=== PATIENT | female | born 1990 | race African-American/Black ===

== ENCOUNTER 2020-01-22 05:55 | Inpatient (IN) | payer OTHER ==
[2020-01-22] MEDS ORDERED: ELECTROLYTE-148 SOLN 500 ML IV ONE ×2 (06:00→09:50)
[2020-01-22 06:40] VITALS: BMI 21.2
[2020-01-22] MEDS ORDERED: CITRIC ACID/SODIUM CITRATE 30 ML UNIT-DOSE CUP PO ONE ×2 (07:15→09:50)
[2020-01-22] MEDS: ELECTROLYTE-148 SOLN 1,000 ML IV SCH (07:17)
[2020-01-22] MEDS ORDERED: OXYTOCIN 20 UNITS in 0.9% NS 40 UNIT/2,000 ML INFUS.BAG IV ONE (08:01)
[2020-01-22] MEDS ORDERED: morphine SULFATE/PF 0.5 MG/ML (2cc Syringe - QUVA) ONE (08:14)
[2020-01-22] MEDS ORDERED: ePHEDrine SULFATE 50 MG/1 ML AMPULE ONE (08:14)
[2020-01-22] MEDS ORDERED: ceFAZolin SODIUM 1 GM VIAL ONE (08:27)
[2020-01-22] MEDS ORDERED: MIDAZOLAM HCL 2 MG/2 ML SINGLE DOSE VIAL ONE (08:51)
[2020-01-22 09:41] LABS: COCAINE, UR NEGATIVE ng/ml (CUTOFF=300); METHADONE, UR NEGATIVE ng/ml (CUTOFF=300); OPIATES, URI NEGATIVE ng/ml (CUTOFF=300); PHENCYCLIDINE,URINE NEGATIVE ng/ml (CUTOFF=25); URINE AMPHETAMINES NEGATIVE ng/ml (CUTOFF=500); URINE BARBITURATES NEGATIVE ng/ml (CUTOFF=200); URINE BENZODIAZEPINES NEGATIVE ng/ml (CUTOFF=200)
[2020-01-22] MEDS ORDERED: ONDANSETRON 4 MG/2 ML VIAL IVPUSH PRN (09:47)
[2020-01-22] MEDS ORDERED: oxyCODONE HCL 5 MG TABLET PO PRN ×2 (09:51)
[2020-01-22] MEDS ORDERED: METHYLERGONOVINE MALEATE 0.2 MG/1 ML AMP IM PRN (09:51)
[2020-01-22] MEDS ORDERED: SENNOSIDES/DOCUSATE COMBO (SENNA PLUS) TABLET (UD) PO PRN (09:51)
--- NOTE | 2020-01-22 09:58 | HP ---
Past Medical History - Admission Chief Complaint: for primary lt c s, hx of myomectomy History Source: Patient Limitations to Obtaining History: No Limitations - Past Medical History MANAGER BENEFIT: No: Alzheimer's, CVA, Dementia, Migraine, Multiple Sclerosis, Peripheral Neuropathy, Parkinson's, Seizure, Syncope, TIA, Vertigo, Other Cardiovascular: No: AFIB, Aneurysm, Aortic Insufficiency, Aortic Stenosis, CAD, CHF, Deep Vein Thrombosis, HTN, Hyperlipdemia, MS, Mitral Insufficiency, Mitral Stenosis, Murmur, Pulmonary Hypertension, Other Pulmonary: No: Asthma, Bronchitis, Cancer, COPD, O2 Dependent, Pneumonia, Previously Intubated, Pulmonary Embolus, Pulmonary Fibrosis, Sleep Apnea, Other Gastrointestinal: No: Ascites, Cancer, Constipation, Crohn's Disease, D iverticulitis, Diverticulosis, Esophageal Varices, Gastritis, GERD, GI Bleed, Hemorrhoids, Hiatal Hernia, Inflamatory Bowel Disease, Irritable Bowel Disease, Pancreatitis, Peptic Ulcer Disease, Ulcerative Colitis, Other Hepatobiliary: No: Cirrhosis, Cholelithiasis, Cholecystitis, Choledocholithiasis, Hepatitis A, Hepatitis B, Hepatitis C, Other Renal/: No: Renal Failure, Renal Inusuff, BPH, Cancer, Hematuria, Hemodialysis, Neurogenic Bladder, Renal Calculi, UTI, Other Reproductive: No: Ectopic , Endometriosis, Fibroids, PID, Polycystic Ovary Syndrome, Postmenopausal, Other ...: 3 ...Para: 0 ...Term: 0 ...: 0 ...Spon : 1 ...Induced : 1 ...Living Children: 0 ...Multiple Gestation: 0 ... Weeks Gestation by Dates: 37.2 ...EDC by Dates: 02/10/20 Heme/Onc: No: Anemia, B12 Deficiency, Bleeding Disorder, Cancer, Current Chemotherapy, Current Radiation Therapy, Hemochromatosis, Hypercoaguable State, Myeloproliferative Synd, Sickle Cell Disease, Sickle Cell Trait, Thrombocytopenia, Other Infectious Disease: No: AIDS, C-Diff, Herpes Zoster, HIV, MRSA, STD's, Tuberculosis, VREF, Other Psych: No: Addictions, Anxiety, Bipolar, Depression, Panic, Psychosis, Schizophrenia, Other Musculoskeletal: No: Bursitis, Chronic low back pain, Hemiparesis, Hemiplegia, Osteoarthritis, Paraplegia, Other Rheumatology: No: Fibromyalgia, Gout, Lupus, Rheumatoid Arthritis, Sarcoidosis, Vasculitis, Other ENT: No: Allergic Rhinitis, Sinusitis, Other Endocrine: No: Ventura's Disease, Safford's Disease, Diabetes Insipidus, Diabetes Mellitus, Hyperparathyroidism, Hyperthyroidism, Hypothyroidism, Osteopenia, SIADH, Other Dermatology: No: Basal Cell, Cellulitis, Eczema, Melanoma, Psoriasis, Squamous Cell, Other - Past Surgical History Hx Myomectomy: Yes Hx Transabdominal Cerclage: No - Advance Directives Advance Directives: Yes: Living Will - Smoking History Smoking history: Never smoked Have you smoked in the past 12 months: No - Alcohol/Substance Use Hx Alcohol Use: No History of Substance Use: reports: None - Social History Usual Living Arrangement: Yes: With Significant Other Do you think of yourself as: Straight/Heterosexual ADL: Independent History of Recent Travel: No Home Medications - Allergies Allergies/Adverse Reactions: Allergies Allergy/AdvReac Type Severity Reaction Status Date / Time No Known Allergies Allergy Verified 01/22/20 06:52 Family Medical History Family History: Denies Review of Systems - Review of Systems Constitutional: reports: No Symptoms Eyes: reports: No Symptoms HENT: reports: No Symptoms Neck: reports: No Symptoms Cardiovascular: reports: No Symptoms Respiratory: reports: No Symptoms Gastrointestinal: reports: No Symptoms Genitourinary: reports: No Symptoms Breasts: reports: No Symptoms Reported Musculoskeletal: reports: No Symptoms Integumentary: reports: No Symptoms Neurological: reports: No Symptoms Endocrine: reports: No Symptoms Hematology/Lymphatic: reports: No Symptoms Psychiatric: reports: No Symptoms Physical Exam - Maternity Constitutional: Yes: Well Nourished, No Distress, Calm Eyes: Yes: WNL, Conjunctiva Clear, EOM Intact HENT: Yes: WNL, Atraumatic, Normocephalic Neck: Yes: WNL, Supple, Trachea Midline Cardiovascular: Yes: WNL, Regular Rate and Rhythm Lungs: Clear to auscultation Breast(s): Yes: WNL - Abdominal Exam/OB Fundal Height: 38 Number of Fetuses: Single Presentation: Vertex Contractions: Yes Regularity: Irregular Intensity: Unaware Monitor Mode: External Heart Rate (range): 150 Heart Rate Location: [facility] Category: I Accelerations: Uniform Decelerations: None - Vaginal Exam/OB Vaginal Bleeding: No Speculum Exam: No Dilatation (cm): 0 Amniotic Membrane Status: Intact Presentation: Vertex/Position Station: -2 - Physical Exam Musculoskeletal: Yes: WNL Extremities: Yes: WNL Edema: Yes Edema: LUE: 1+, RUE: 1+, LLE: 1+, RLE: 1+ Integumentary: Yes: WNL Deep Tendon Reflex Grade: Normal +2 ...Motor Strength: WNL Psychiatric: Yes: WNL, Alert, Oriented Hemorrhage Risk Assessment - Risk Factors Medium Risk Factors: Yes: Prior , uterine surgery,or multiple laparotomies High Risk Factors: Yes: None Risk Score: 1 Risk Level: Medium Risk Assessment/Plan for primary lt c s due to hx of myomectomy
[2020-01-22] MEDS ORDERED: OXYTOCIN 20 UNITS in 0.9% NS 20 UNIT/1,000 ML INFUS.BAG IV SCH (10:00)
[2020-01-22] MEDS ORDERED: ELECTROLYTE-148 SOLN 1,000 ML IV SCH (10:00)
--- NOTE | 2020-01-22 10:02 | OP ---
Operative Note - Note: Operative Date: 01/22/20 Pre-Operative Diagnosis: hx of myomectomy, for primary lt c s Operation: primary lt c s Findings: fibroids, no adhesions Post-Operative Diagnosis: Same as Pre-op Surgeon: Benedict Gaona Slab Stripper: Mohsen Archer Anesthesiologist/SALES TRAINER: Allie Jean Baptiste Anesthesia: Spinal Estimated Blood Loss (mls): 900 Operative Report Dictated: Yes
[2020-01-22] MEDS: IBUPROFEN 800 MG/8 ML IJ IVPB PRN (16:14)
[2020-01-22] MEDS: PRENATAL VITAMINS W/ FOLIC ACID TABLET (FP) PO SCH (18:14)
[2020-01-23] MEDS: IBUPROFEN 800 MG/8 ML IJ IVPB PRN (00:19)
[2020-01-23] MEDS: ELECTROLYTE-148 SOLN 1,000 ML IV SCH (07:48)
[2020-01-23 08:15] LABS: BASO % 0.4 % (0-2.0); EOS % 0.6 % (0-4.5); HEMATOCRIT 24.5 % (32.4-45.2); HEMOGLOBIN 8.3 GM/dL (10.7-15.3); LYMPH % 7.2 % (8-40); MCH 34.7 pg (25.7-33.7); MCHC 33.8 g/dl (32.0-36.0); MEAN CELL VOLUME 102.6 fl (80-96); MEAN PLT VOLUME 10.2 fl (7.5-11.1); NEUT % 85.8 % (42.8-82.8); PLATELET COUNT 169 K/MM3 (134-434); RBC 2.39 M/mm3 (3.60-5.2); RDW 12.8 % (11.6-15.6)
[2020-01-23] MEDS: PRENATAL VITAMINS W/ FOLIC ACID TABLET (FP) PO SCH (09:26)
[2020-01-23] MEDS ORDERED: BISACODYL 10 MG SUPP.RECT RC PRN (09:51)
--- NOTE | 2020-01-23 10:27 | PN ---
Post Progress Note Post Day: 1 Type of Delivery: Primary C/S Vital Signs: Vital Signs Temperature 98.2 F 01/23/20 06:00 Pulse Rate 55 L 01/23/20 06:00 Respiratory Rate 18 01/23/20 06:00 Blood Pressure 100/55 L 01/23/20 06:00 O2 Sat by Pulse Oximetry (%) 98 01/22/20 15:00 Breast Exam: Yes: Soft Uterus: Yes: Fundus Firm, Fundus below umbilicus Incision: Yes: Dressing dry and intact, Sutures intact Abdomen/GI: Yes: Abdomen soft, Passing flatus, Tolerating PO Lochia: Yes: Serosa Lochia, amount: Small Extremities: Yes: Calves non-tender Activity: Ambulating (oob asmuch as possible ) - Labs Labs: CBC WBC 14.0 K/mm3 (4.0-10.0) H 01/23/20 07:38 RBC 2.39 M/mm3 (3.60-5.2) L 01/23/20 07:38 Hgb 8.3 GM/dL (10.7-15.3) L 01/23/20 07:38 Hct 24.5 % (32.4-45.2) L D 01/23/20 07:38 MCV 102.6 fl (80-96) H 01/23/20 07:38 MCH 34.7 pg (25.7-33.7) H 01/23/20 07:38 MCHC 33.8 g/dl (32.0-36.0) 01/23/20 07:38 RDW 12.8 % (11.6-15.6) 01/23/20 07:38 Plt Count 169 K/MM3 (134-434) 01/23/20 07:38 MPV 10.2 fl (7.5-11.1) 01/23/20 07:38 Absolute Neuts (auto) 12.1 K/mm3 (1.5-8.0) H 01/23/20 07:38 Neutrophils % 85.8 % (42.8-82.8) H D 01/23/20 07:38 Lymphocytes % 7.2 % (8-40) L D 01/23/20 07:38 Monocytes % 6.0 % (3.8-10.2) 01/23/20 07:38 Eosinophils % 0.6 % (0-4.5) 01/23/20 07:38 Basophils % 0.4 % (0-2.0) 01/23/20 07:38 Nucleated RBC % 0 % (0-0) 01/23/20 07:38
--- NOTE | 2020-01-23 13:31 | PN ---
Progress Note (short form) - Note Progress Note: Anesthesia postop note 29 y/o F s/p spinal anesthesia/duramorph for section POD#1, vss, aaox3, pain well controlled, sensory motor intact distally No anesthesia complications.
[2020-01-23] MEDS: SIMETHICONE 80 MG TAB.CHEW (FP) PO PRN (13:42)
[2020-01-23] MEDS: ACETAMINOPHEN 325 MG TABLET (FP) PO PRN ×2 (13:42→21:56)
[2020-01-23] MEDS: IBUPROFEN 600 MG TABLET (FP) PO PRN ×2 (13:44→21:56)
[2020-01-23] MEDS: FERROUS SO4 325 MG TABLET (FP) PO SCH (21:56)
[2020-01-24] MEDS: SIMETHICONE 80 MG TAB.CHEW (FP) PO PRN ×3 (00:51→21:16)
--- NOTE | 2020-01-24 07:39 | PN ---
Post Progress Note Post Day: 2 Type of Delivery: Primary C/S Vital Signs: Vital Signs Temperature 97.7 F 01/24/20 05:54 Pulse Rate 62 01/24/20 05:54 Respiratory Rate 18 01/24/20 05:54 Blood Pressure 116/61 01/24/20 05:54 O2 Sat by Pulse Oximetry (%) 98 01/22/20 15:00 Breast Exam: Yes: Soft Uterus: Yes: Fundus Firm, Fundus below umbilicus Incision: Yes: Dressing dry and intact, Sutures intact Abdomen/GI: Yes: Abdomen soft, Passing flatus, Tolerating PO Lochia: Yes: Serosa Lochia, amount: Small Extremities: Yes: Calves non-tender Perineum: Yes: Intact Activity: Ambulating - Labs Labs: CBC WBC 14.0 K/mm3 (4.0-10.0) H 01/23/20 07:38 RBC 2.39 M/mm3 (3.60-5.2) L 01/23/20 07:38 Hgb 8.3 GM/dL (10.7-15.3) L 01/23/20 07:38 Hct 24.5 % (32.4-45.2) L D 01/23/20 07:38 MCV 102.6 fl (80-96) H 01/23/20 07:38 MCH 34.7 pg (25.7-33.7) H 01/23/20 07:38 MCHC 33.8 g/dl (32.0-36.0) 01/23/20 07:38 RDW 12.8 % (11.6-15.6) 01/23/20 07:38 Plt Count 169 K/MM3 (134-434) 01/23/20 07:38 MPV 10.2 fl (7.5-11.1) 01/23/20 07:38 Absolute Neuts (auto) 12.1 K/mm3 (1.5-8.0) H 01/23/20 07:38 Neutrophils % 85.8 % (42.8-82.8) H D 01/23/20 07:38 Lymphocytes % 7.2 % (8-40) L D 01/23/20 07:38 Monocytes % 6.0 % (3.8-10.2) 01/23/20 07:38 Eosinophils % 0.6 % (0-4.5) 01/23/20 07:38 Basophils % 0.4 % (0-2.0) 01/23/20 07:38 Nucleated RBC % 0 % (0-0) 01/23/20 07:38
--- NOTE | 2020-01-24 08:06 | DS ---
Physical Exam-HEEL REDUCER Vital Signs: Vital Signs Temperature 97.7 F 01/24/20 05:54 Pulse Rate 62 01/24/20 05:54 Respiratory Rate 18 01/24/20 05:54 Blood Pressure 116/61 01/24/20 05:54 O2 Sat by Pulse Oximetry (%) 98 01/22/20 15:00 Constitutional: Yes: Well Nourished, No Distress, Calm Eyes: Yes: WNL, Conjunctiva Clear, EOM Intact HENT: Yes: WNL, Atraumatic, Normocephalic Neck: Yes: WNL, Supple, Trachea Midline Cardiovascular: Yes: WNL, Regular Rate and Rhythm Respiratory: Yes: WNL, Regular, CTA Bilaterally Gastrointestinal: Yes: WNL, Normal Bowel Sounds, Soft ...Rectal Exam: Yes: WNL Renal/: Yes: WNL Pelvis: Yes: WNL External Genitalia: Yes: Normal Internal Exam Deferred: Yes Vaginal Exam: Yes: Normal Cervix: Yes: Normal Uterus: Yes: Normal Adnexa: Normal: Bilateral ....Post : Yes: Uterus firm, Uterus non-tender Breast(s): Yes: WNL Musculoskeletal: Yes: WNL Extremities: Yes: WNL Edema: Yes Integumentary: Yes: WNL Wound/Incision: Yes: Clean/Dry, Well Approximated Neurological: Yes: WNL, Alert, Oriented ...Motor Strength: WNL Psychiatric: Yes: WNL, Alert, Oriented Labs: CBC, BMP 01/23/20 07:38 Delivery - Delivery Section: Primary Type of Anesthesia: Spinal Episiotomy/Laceration: None EBL (cc): 900 Delivery, Single - Stages of Labor Date of Delivery: 01/22/20 Time of Delivery: 08:44 Time Placenta Delivered: 08:46 - Condition of Upholsterer Limousine And Hearse/Terrazzo Layer Helper Present: Yes Name: Luis Morales Infant Gender: Male Weight: 2.665 kg Position: Right, OT Total Hours ROM (Hrs/Mins): 1 min - 1 Minute Total Score: 9 5 Minutes Total Score: 9 - [place] Feeding Plan Initial Plan: Exclusive throughout hospitalization Discharge Summary Problems reviewed: Yes Reason For Visit: C/S ADMIT Procedures: Principal: primary lt c s Condition: Good - Instructions Diet, Activity, Other Instructions: Physical activity Resume your normal everyday activity as tolerated no heavy lifting or exercise until seen by your surgeon. You may walk unlimited ladarius of and climb stairs. You may resume driving the car when you feel safe and comfortable behind the wheel. No sexual activity as instructed. Wound care If you have a bandage, leave it on, and keep dry for 48-72 hours. After that time discard the outer bandage. If they are tapes on the skin under the out of bandage leave them in place. They will peel off in the next 7 to 10 days. Do Not Peel them off. You may shower the day after surgery. If there are tapes present on the skin, you may shower over them. Diet There are no dietary restrictions. Eat healthy, high-fiber foods. Drink 6 to 8 glasses of liquid each day. This will assist in keeping your bowels are regular. Pain management You may take Tylenol or acetaminophen or Ibuprofen (for example, Motrin, Advil etc.) from my pain prescription medication is ordered should be taken as prescribed for moderate to severe pain. Call MD for any of the following:; call dr neal for 2 weeks appointment Severe pain not relieved by medication Fever of 101 or higher Excessive bleeding or drainage on dressing Inability to urinate Referrals: ON STAFF,NOT [Primary Care Provider] - - Home Medications Prescription Drug Monitoring Program (I-STOP) results: I-STOP reviewed and no issues identified
[2020-01-24] MEDS: FERROUS SO4 325 MG TABLET (FP) PO SCH ×2 (09:47→21:16)
[2020-01-24] MEDS: PRENATAL VITAMINS W/ FOLIC ACID TABLET (FP) PO SCH (09:47)
[2020-01-24] MEDS: ACETAMINOPHEN 325 MG TABLET (FP) PO PRN (12:18)
[2020-01-24] MEDS: IBUPROFEN 600 MG TABLET (FP) PO PRN (12:19)
--- NOTE | 2020-01-24 18:05 | PATH ---
Surgical Pathology Report Patient Name: [facility]. Rec. #: [id number] /Age/Gender: 1990 (Age: 29) / F Account: [id number] Location: [facility] OBS/SOLUTIONS ANALYST Taken: 01/22/2020 Received: 01/22/2020 Reported: 01/24/2020 Physicians: Benedict Gaona MD Specimen(s) Received PLACENTA Clinical History , primary , 37.2 gestational weeks Final Diagnosis PLACENTA: THIRD TRIMESTER PLACENTA WITH FOCAL INCREASED SYNCYTIAL KNOTS AND PERIVILLOUS FIBRIN DEPOSITION. TRIVASCULAR CORD. MEMBRANES WITH NO DIAGNOSTIC ABNORMALITIES. Electronically Signed Ruel Clay M.D. Gross Description The specimen is received fresh labeled placenta and is a 484 gram, 19.0 x 13.5 x 2.8 cm. placenta with attached membranes and umbilical cord. The attached membranes are drew, translucent with focal opacities and insert marginally. The umbilical cord measures 45 cm. in length and averages 1.1 cm. in diameter. The cord inserts eccentrically, 4 cm. to the nearest margin. No true knots or strictures are identified. Cut surface of the umbilical cord reveals 3 vessels. The surface is hinojosa-blue with minimal fibrin deposition and appropriate caliber vessels. The maternal surface is red-brown with focal defects. Sectioning reveals red-brown, spongy parenchyma. No lesions are identified. Emissions Engineer sections are submitted in three cassettes as follows: 1- membrane rolls and umbilical cord; 2-3- full thickness sections of placenta. 01/23/2020 [facility]01/23/2020
[2020-01-24 21:11] VITALS: TEMP 98
[2020-01-25] MEDS: FERROUS SO4 325 MG TABLET (FP) PO SCH (09:24)
[2020-01-25] MEDS: PRENATAL VITAMINS W/ FOLIC ACID TABLET (FP) PO SCH (09:24)
[2020-01-25] MEDS: IBUPROFEN 600 MG TABLET (FP) PO PRN (09:25)
[2020-01-25] MEDS: SIMETHICONE 80 MG TAB.CHEW (FP) PO PRN (09:26)
[2020-01-25] MEDS: ACETAMINOPHEN 325 MG TABLET (FP) PO PRN (09:26)
[2020-01-25 15:56] VITALS: BP 128/70; PULSE 68
--- NOTE | 2020-01-30 22:51 | OP ---
DATE OF OPERATION: 01/22/2020 PREOPERATIVE DIAGNOSIS: History of myomectomy for primary low transverse section. POSTOPERATIVE DIAGNOSIS: History of myomectomy for primary low transverse section. There were no adhesions. PROCEDURE: Primary low transverse section due to previous myomectomy. SURGEON: Benedict Shepherd MD. APPRENTICE ARCHITECT: CHAPINCITO Tamez. ANESTHESIA: Spinal ANESTHESIOLOGIST: Melinda Jean Baptiste DO. BLOOD LOSS: About 500 mL INDICATION: This 29-year-old female patient, 37-1/2 weeks with previous history of myomectomy. Patient had all the risks, benefits, and alternatives explained, understands the risk of rupture, so patient taken to OR for primary low transverse section. DESCRIPTION OF PROCEDURE: Patient was placed on operating table in supine position after spinal anesthesia was obtained. The patient's abdomen and pelvis were prepped and draped in the usual sterile manner following same vertical incision. Incision was made through the skin, subcutaneous tissue, until the fascia was nicked in the midline. The fascia was extended superiorly and inferiorly. After that, peritoneum was entered, and the intraabdominal cavity was entered. At this time, we did not encounter any adhesions, so a low transverse section of uterus was entered, baby delivered from LOT position. Baby was handed over to the spring winder after umbilical cord was doubly clamped and cut. Placenta was removed. Uterus was closed in single layer, first layer interlocking Vicryl suture, good hemostasis, and both gutters clean. Both ovaries, fallopian tubes were within normal limits. Patient still had a fibroid uterus, about 4 x 5 cm at the posterior part of the uterus. Other than that, no complications. Tolerated procedure well. Good hemostasis. No complications. Draining clear urine. Blood loss was about 500 mL. Peritoneum was closed. Fascia was closed superiorly down to inferiorly. Good hemostasis, and the subcutaneous tissue was closed, and the skin was closed. No complications. BENEDICT SHEPHERD MD [id number]
== END 2020-01-25 13:50 | disposition home or self-care (01) | DRG 540 ==
LOC: JLDR 05:55 → J3W 11:07
PROVIDERS: ADMIT Obstetrics & Gynecology; ATTEND Obstetrics & Gynecology
PROC: 10D00Z1 Extraction of Products of Conception, Low, Open Approach (ICD-10-PCS; principal; 2020-01-22)
DX: O34.13 Maternal care for benign tumor of corpus uteri, third trimester (principal); D25.9 Leiomyoma of uterus, unspecified; Z37.0 Single live birth; Z3A.37 37 weeks gestation of pregnancy; Z87.42 Personal history of other diseases of the female genital tract
CPT/HCPCS: 36415; 80307; 85025; 88307-TC